=== PATIENT | male | born 1995 | race Caucasian/White ===

== ENCOUNTER → 2018-12-08 14:20 | Outpatient (CLI) | payer OTHER, SELFPAY ==
--- NOTE | 2018-12-08 14:26 | RAD_ITS ---
STUDY: X-RAY - LEFT RADIUS AND ULNA REASON FOR EXAM: Painful to move left wrist, no specific injury. TECHNIQUE: 2 view(s) of the forearm. COMPARISON: None. FINDINGS: There is no demonstrated soft tissue swelling. Normal visualized radius. Normal visualized ulna. RAD/Forearm 2 Views IMPRESSION: Normal x-ray examination of the left radius and ulna. Electronically Signed: Andreas Noel MD at 15:15 EST Tel , Service support ,
== END ==
PROVIDERS: Family Provider Family Medicine; PCP Family Medicine; Referring Provider Family Medicine; Visit Provider Family Medicine
DX: M79.602 Pain in left arm (principal)
CPT/HCPCS: 73090

== ENCOUNTER 2024-10-17 17:10 | Emergency (ER) | payer OTHER, SELFPAY ==
[2024-10-17 17:10] VITALS: BP 136/68; PULSE 79; RESP 16; TEMP 36.2; O2SAT 100; BMI 21.7
--- NOTE | 2024-10-17 17:36 | EDS_ITS ---
HPI History of Present Illness Chief Complaint: Wound Informant: patient Onset/Context/Timing Onset: Yesterday Mechanism/Context: Puncture Wound Location of pain/injuries: Left hand Quality of Pain: - (Mild) Location: Left hand and left knee Worsened by: Certain movements Relieved by: Nothing Associated Symptoms Associated Symptoms: Negative for Parasthesias, Weakness, Loss of function, Inability to ambulate, Loss of consciousness or Amnesia Narrative Narrative: Report reviewed left hand and left knee today cardiopulmonary. Patient states he was stripping copper wire yesterday and a copper wire went through his left thumb. Patient states he pulled it out and dropped it. Patient states that then punctured his left knee area. He went to urgent care today and was referred to the emergency department because they felt that he needed x-ray of his hand and a tetanus booster. Patient denies any fevers or chills. Patient denies any discharge or drainage. Patient does not remember his last tetanus vaccine. [facility]: [facility] History no medical history no medical history Home Medications ?Medication ?Instructions ?Recorded ?Last Taken ?Type cephalexin 500 mg capsule 500 mg PO Q6 #40 CAPSULES 10/17/24 Unknown Rx Allergy/AdvReac Type Severity Reaction Status Date / Time No Known Allergies Allergy Verified 10/17/24 17:10 Surgical History no surgical history no surgical history Social History (Updated 10/17/24 @ 17:[address] Daniel Stiles, DO) Smoking Status: Never smoker alcohol intake: current alcohol intake frequency: holidays/special occasions only ROS ROS ED Constitutional Constitutional ED: Denies chills or fever(s) Eyes Eyes: Denies blurry vision or change in vision ENT ENT ED: Denies rhinorrhea or sore throat Cardiovascular Cardiovascular: Denies chest pain or palpitations Respiratory/Chest Respiratory/Chest: Denies cough or dyspnea Gastrointestinal Gastrointestinal: Denies nausea or vomiting Genitourinary Genitourinary ED: Denies dysuria or hematuria Musculoskeletal Musculoskeletal: Denies back pain or neck pain Integumentary Denies abscess or rash Neurologic Neurologic: Denies headache(s) or weakness Allergic/Immunologic Allergic/Immunologic ED: Denies mouth swelling or urticaria EXAM Physical Exam Const Vital Signs: 10/17/24 17:10 Temperature 97.2 F L Temperature Source Temporal Pulse Rate 79 Respiratory Rate 16 Blood Pressure 136/68 H Blood Pressure Mean 90 Pulse Ox 100 Oxygen Delivery Method Room Air Positive well nourished and well developed General Appearance ED: well developed and NAD HEENT atraumatic Neuro oriented x3, CN's II-XII intact bilaterally, moves all extremities, no focal mot or deficits and no sensory deficits noted [place] Coma Scale: document GCS findings Spontaneous Obeys Commands Oriented 15 Sensorium / Orientation: alert Motor Exam: strength 5/5 throughout Psych mental status grossly normal and thought process normal Skin Skin Narrative: There are puncture wounds over the volar aspect of the left thumb near the MP joint. There is no surrounding erythema or warmth. There is no discharge or drainage. There is no bleeding noted. There is also a puncture wound noted over the medial aspect of the left knee/distal femur. There is no bleeding noted. There is no erythema or warmth. There is no discharge or drainage. There is full range of motion of the left hand and left knee. There is no left knee effusion. MDM MDM MDM Narrative Medical decision making narrative: Differential diagnosis includes wound infection, and osteomyelitis. X-rays of the left hand will be obtained to assess for osteomyelitis. Radiography Diagnostic Testing: Clinical Impression(s) from Imaging Studies Hand X-Ray 10/17/24 17:42 IMPRESSION: 1. Negative x-ray examination of the hand. Electronically Signed: Koko Iverson MD at 18:32 EST Reading Location ID and State: [facility] / [place] , Service support , X-rays of the left hand were obtained. There are 3 views. On my independent interpretation, there is no acute fracture. There is no retained foreign body. There is no evidence of osteomyelitis. Radiologist also interpreted the x-rays and agrees. Treatment and Re-Evaluation Narrative: Patient was given a tetanus booster. Patient was given a dose of Keflex here. Patient was given a prescription for Keflex. Patient was advised of his findings. Patient was instructed to keep the wounds clean and dry. Patient was instructed to follow-up with his primary care physician in 5 to 7 days. Patient understood and was agreeable with the plan. All questions were answered. Discharge Plan Triage Chief Complaint: Wound ED Provider: Daniel Stiles Dx/Rx/DC Orders Clinical Impression: Puncture wound of left hand, Puncture wound of left knee Instructions: ED Puncture Wound (General) Prescriptions: New cephalexin 500 mg capsule 500 mg PO Q6 Qty: 40 0RF Primary Care Provider: Dinah Ray Referrals: Dinah Ray MD [Primary Care Provider] - 5-7 Days Print Language: Urdu Disposition Disposition: Home, Self Care
--- NOTE | 2024-10-17 17:42 | RAD_ITS ---
STUDY: X-RAY - LEFT HAND REASON FOR EXAM: Male, 28 years old. Injury/Pain PIECE OF COPPER WIRE POKED THRU SKIN BETWEEN THUMB AND INDEX FINGER TECHNIQUE: 3 view(s) of the hand. COMPARISON: None. FINDINGS: No demonstrated radiopaque foreign body or subcutaneous air. No visualized fracture. Normal radiocarpal articulation. Normal distal radioulnar joint. Normal visualized carpal bones. Normal carpal articulations Normal carpometacarpal articulation of the thumb. Normal second through fifth carpometacarpal joints. Normal metacarpi. Normal metacarpophalangeal joint of the thumb. Normal interphalangeal joint of the thumb. Normal proximal and distal phalanges of the thumb. Normal metacarpophalangeal joints of the second through fifth fingers. Normal proximal and distal interphalangeal joints of the second through fifth fingers. Normal phalanges of the second through fifth fingers. The soft tissue structures are unremarkable. RAD/Hand Min 3 Views IMPRESSION: 1. Negative x-ray examination of the hand. Electronically Signed: Koko Iverson MD at 18:32 EST Reading Location ID and State: [facility] / [place] , Service support ,
[2024-10-17] MEDS: Diphth,Pertuss(Acell),Tet Vac 0.5 ML Vial IM (17:51)
[2024-10-17] MEDS: Cephalexin 500 MG Capsule PO (18:47)
[2024-10-17 18:51] VITALS: RESP 17
== END 2024-10-17 18:52 | disposition home or self-care (01) ==
PROVIDERS: Emergency Provider Emergency Medicine; PCP Family Medicine; Visit Provider Emergency Medicine
DX: S61.032A Puncture wound without foreign body of left thumb without damage to nail, initial encounter (principal); S81.032A Puncture wound without foreign body, left knee, initial encounter; W26.8XXA Contact with other sharp object(s), not elsewhere classified, initial encounter; Z23 Encounter for immunization
CPT/HCPCS: 73130; 90715; 99283